=== PATIENT | female | born 1985 | race African-American/Black ===

== ENCOUNTER 2016-04-02 12:27 | Emergency (ER) | payer OTHER ==
[2016-04-02] MEDS ORDERED: METOCLOPRAMIDE INJ 10MG/2ML VIAL (J2765) As Ordered ONE (13:24)
[2016-04-02 14:37] LABS: BASO % 0.2 % (0.0-1.0); EOS # 0.1 K/mm3 (0.0-0.50); EOS % 1.6 % (0.0-3.0); LARGE UNSTAINED CELL % 0.7 % (0.0-4.0); LYMPH # 1.3 K/mm3 (1.5-4.5); LYMPH % 20.4 % (24.0-44.0); MEAN CORPUSCULAR HGB CONC 32.4 g/dl (32.0-36.5); MEAN CORPUSCULAR VOLUME 89.5 fl (80.0-96.0); MONO # 0.2 K/mm3 (0.0-0.8); MONO % 2.6 % (0.0-5.0); NEUTROPHILS # 4.6 K/mm3 (1.8-7.7); NEUTROPHILS % 74.6 % (36.0-66.0); PLATELET COUNT, AUTOMATED 292 k/mm3 (150-450); RED CELL DISTRIBUTION WIDTH 12.9 % (11.5-14.5); WHITE BLOOD COUNT 6.1 K/mm3 (4.0-10.0)
[2016-04-02] MEDS ORDERED: ONDANSETRON 4MG/2ML VIAL (J2405) As Ordered ONE (14:50)
[2016-04-02 15:02] LABS: ANION GAP 9 MEQ/L (8-16); BLOOD UREA NITROGEN 5 MG/DL (7-18); CALCIUM LEVEL 8.9 MG/DL (8.5-10.1); CARBON DIOXIDE LEVEL 23 MEQ/L (21-32); CHLORIDE LEVEL 107 MEQ/L (98-107); CREATININE FOR GFR 0.54 MG/DL (0.55-1.02); GLOMERULAR FILTRATION RATE > 60.0 (>60); GLUCOSE, FASTING 85 MG/DL (70-105); POTASSIUM SERUM 3.7 MEQ/L (3.5-5.1); SODIUM LEVEL 139 MEQ/L (136-145)
--- NOTE | 2016-04-02 16:40 | EDDOCDS ---
Physician Documentation [facility] Name: Angie Little Age: 31 yrs Sex: Female : 1985 Arrival Date: 04/02/2016 Time: 12:27 Bed I3 / M3 Private MD: Disposition: 04/02/16 16:23 Discharged to Home/Self Care. Impression: Nausea and vomiting. - Condition is Stable. - Discharge Instructions: Nausea and Vomiting. - Prescriptions for ZOFRAN ODT 4 mg - dissolve 1 tablet by ORAL route 4 times per day As needed do not chew, do not swallow whole; 10 tablet. - Medication Reconciliation, Local Pharmacy Hours form. - Follow up: Kaelyn Vasquez MD; When: 2 - 3 days; Reason: Recheck today's complaints, Continuance of care. Follow up: Emergency Department; When: As needed; Reason: Worsening of conditions. - Problem is new. - Symptoms have improved. Historical: - Allergies: no known allergies; - Home Meds: 1. 1 mg Oral tab 1 tablet daily - PMHx: none; - PSHx: none; - Social history: Smoking status: Patient states was never smoker of tobacco. No barriers to communication noted, The patient speaks fluent Macedonian. - Family history: Not pertinent. - : The pt / caregiver states he / she is not on anticoagulants. Home medication list is obtained from the patient. - Exposure Risk Screening:: None identified. [employer]: 04/02 12:33 1, Full Term 0, Premature 0, 0, Living 0, LMP 12/27/2015 ms18 Vital Signs: 12:29 BP 113 / 59; Pulse 87; Resp 18; Temp 97.0(O); Pulse Ox 100% on R/A; Weight 84.82 kg / ct3 187 lbs (M); Height 5 ft. 5 in. (165.10 cm) (M); Pain 0/10; 15:41 BP 111 / 65; Pulse 84; Resp 18; Pulse Ox 99% on R/A; Pain 0/10; kc3 12:29 Body Mass Index 31.12 (84.82 kg, 165.10 cm) ct3 MDM: 12:52 Financial registration complete. lg 12:54 IV Saline Lock ordered. ar2 12:54 Metoclopramide 10 mg IV at 40 mg/hr once over 15 mins ordered. ar2 12:54 Fluid Challenge ordered. ar2 12:55 NS 0.9% 1000 ml IV at bolus once ordered. ar2 12:55 Misc Veneer Trimmer Order ordered. ar2 12:56 CBC with Diff Ordered. EDMS 12:56 MED Profile Ordered. EDMS 12:56 UA Ordered. EDMS 13:10 Misc Veneer Trimmer Order complete. dem1 13:20 [facility] Payment Agreement was scanned into [employer] and attached to record. lg 13:55 UA Reviewed. ar2 14:47 Ondansetron 4 mg IVP once ordered. ar2 14:48 Heart Tones ordered. ar2 15:02 CBC with Diff Reviewed. ar2 15:03 Urine Culture Ordered. EDMS 15:41 MED Profile Reviewed. dk1 Administered Medications: 13:48 Drug: Metoclopramide 10 mg [metoclopramide 5 mg/mL injection solution] Route: IV; Rate: kc3 40 mg/hr; Infused Over: 15 mins; Site: left hand; 14:15 Follow up: IV Status: Completed infusion srm 13:48 Drug: NS 0.9% 1000 ml [sodium chloride 0.9 % intravenous solution] Route: IV; Rate: kc3 bolus; Site: left hand; 16:10 Follow up: IV Status: Completed infusion srm 15:11 Drug: Ondansetron 4 mg [ondansetron HCl 2 mg/mL intravenous solution (2 mL)] Route: kc3 IVP; Site: left hand; Signatures: Dispatcher [employer] EDMS Gopi Kelly Reg Reg lg Dieter Costa PA-C PA-C dk1 Boris Rutledge PA-C PAJillian ar2 Rosaura Magana dem1 Latesha Franz RN RN ms18 Neisha Ty RN RN kc3 Fifi Valentin RN srm The chart was reviewed and I authenticate all verbal orders and agree with the evaluation and treatment provided.Corrections: (The following items were deleted from the chart) 12:55 12:54 Misc Veneer Trimmer Order ordered. ar2 ar2 Attachments: 13:20 [facility] [place] Payment Agreement lg MTDD
--- NOTE | 2016-04-02 16:40 | EDDOCDS ---
Nurse's Notes [facility] Name: Angie Little Age: 31 yrs Sex: Female : 1985 Arrival Date: 04/02/2016 Time: 12:27 Bed I3 / M3 Private MD: Diagnosis: Nausea and vomiting Presentation: 04/02 12:30 Presenting complaint: Patient states: that she is 12 weeks and can't keep ms18 anything down. Pt states that she hasn't been able to eat in 2 weeks. Adult Sepsis Screening: The patient does not have new or worsening altered mentation. Patient's respiratory rate is less than 22. Systolic blood pressure is greater than 100. Patient has a qSOFA score of 0- Negative Sepsis Screen. Suicide/Homicide risk assessment- the patient denies having any suicidal and/or homicidal ideations and does not present with any other emotional, behavioral or mental health complaints. Status: The patient is a dependent. Transition of care: patient was not received from another setting of care. 12:30 Acuity: DIVINE Level 3 ms18 12:30 Method Of Arrival: Walkin/Carried/Asstd ms18 Triage Assessment: 12:33 General: Appears in no apparent distress, comfortable, Behavior is appropriate for age, ms18 cooperative. Pain: Location: epigastric area, right upper quadrant and left upper quadrant Pain currently is 6 out of 10 on a pain scale. Pt Declines HIV testing. Neurological: Level of Consciousness is awake, alert, obeys commands, Oriented to person, place, time. Respiratory: No deficits noted. GI: Abdomen is non- distended Reports nausea, vomiting. Derm: Skin is normal. 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 1 mg Oral tab 1 tablet daily - PMHx: none; - PSHx: none; - Social history: Smoking status: Patient states was never smoker of tobacco. No barriers to communication noted, The patient speaks fluent Czech. - Family history: Not pertinent. - : The pt / caregiver states he / she is not on anticoagulants. Home medication list is obtained from the patient. - Exposure Risk Screening:: None identified. Screenin:38 Screening information is obtained from the patient. Fall risk: No risks identified. kc3 Assistance ADL's: requires no assistance with activities of daily living. Abuse/DV Screen: The patient / caregiver reports he/she is: not in a situation that causes fear, pain or injury. Nutritional screening: No deficits noted. Advance Directives: Currently, there is no health care proxy. home support is adequate. Assessment: 13:49 General: Appears in no apparent distress, comfortable, Behavior is appropriate for age, kc3 cooperative. Pain: Location: abdomen. Neurological: Level of Consciousness is awake, alert, obeys commands, Oriented to person, place, time. Respiratory: Respiratory effort is even, unlabored, Respiratory pattern is regular, symmetrical. GI: Abdomen is flat, Bowel sounds present X 4 quads. Abd is soft and non tender Reports nausea. Derm: Skin is normal. 14:30 General: Appears in no apparent distress, comfortable, Behavior is appropriate for age, kc3 cooperative. Pain: Location: epigastric area. Neurological: Level of Consciousness is awake, alert, obeys commands, Oriented to person, place, time. Respiratory: Respiratory effort is even, unlabored. Derm: Skin is normal. 15:37 General: Appears in no apparent distress, comfortable, Behavior is appropriate for age, kc3 cooperative, Pt resting on stretcher with no complaints at this time. Pt sipping on mynor estiven. Will continue to monitor. . Respiratory: No deficits noted. Derm: No deficits noted. 16:37 General: Appears in no apparent distress, comfortable, Behavior is appropriate for age, kc3 cooperative. Pain: Denies pain. Neurological: Level of Consciousness is awake, alert, obeys commands, Oriented to person, place, time. Respiratory: Respiratory effort is even, unlabored. Derm: Skin is normal. Vital Signs: 12:29 BP 113 / 59; Pulse 87; Resp 18; Temp 97.0(O); Pulse Ox 100% on R/A; Weight 84.82 kg ct3 (M); Height 5 ft. 5 in. (165.10 cm) (M); Pain 0/10; 15:41 BP 111 / 65; Pulse 84; Resp 18; Pulse Ox 99% on R/A; Pain 0/10; kc3 12:29 Body Mass Index 31.12 (84.82 kg, 165.10 cm) ct3 Vitals: 12:29 Log In Time: April 02, 2016 at 12:27. ct3 15:08 Heart Tones 152BPM. ms18 ED Course: 12:29 Patient visited by Autumn Barcenas PCA. ct3 12:29 Patient moved to Waiting ct3 12:31 Patient moved to Pre RCE ct3 12:33 Triage Initiated ms18 12:35 Patient moved to Triage 3 ms18 12:47 Boris Rutledge PA-C is PHCP. ar2 12:47 Juan Alberto Gordon MD is Attending Physician. ar2 12:47 Patient visited by Boris Rutledge PA-C. ar2 13:00 Patient moved to I3 / M3 jb5 13:03 UA Sent. jb5 13:18 Patient name changed from Angie\S\\S\Anabel\S\ to Angie\S\Wamuyu\S\Anabel. EDMS 13:20 [facility] Payment Agreement was scanned into [employer] and attached to record. lg 13:23 Patient visited by Neisha Ty RN. kc3 13:32 Patient name changed from Angie\S\Wamuyu\S\Anabel\S\ to Angie\S\ \S\Anabel. EDMS 13:49 Inserted saline lock: 20 gauge in left hand The patient tolerated the procedure well. kc3 14:26 Patient visited by Neisha Ty RN. kc3 15:07 Patient visited by Latesha Franz RN. ms18 15:11 Urine Culture Sent. kc3 15:22 PHCP role handed off by Boris Rutledge PA-C dk1 15:22 Dieter Costa PA-C is PHCP. dk1 15:36 Patient visited by Neisha Ty RN. kc3 15:38 The patient / caregiver is instructed regarding the plan of care and ED course. kc3 16:23 Kaelyn Vasquez MD is Referral Physician. dk1 16:37 Discontinued IV lock intact, bleeding controlled, pressure dressing applied, No kc3 redness/swelling at site. No procedures done that require assistance. Administered Medications: 13:48 Drug: Metoclopramide 10 mg [metoclopramide 5 mg/mL injection solution] Route: IV; Rate: kc3 40 mg/hr; Infused Over: 15 mins; Site: left hand; 14:15 Follow up: IV Status: Completed infusion srm 13:48 Drug: NS 0.9% 1000 ml [sodium chloride 0.9 % intravenous solution] Route: IV; Rate: kc3 bolus; Site: left hand; 16:10 Follow up: IV Status: Completed infusion srm 15:11 Drug: Ondansetron 4 mg [ondansetron HCl 2 mg/mL intravenous solution (2 mL)] Route: kc3 IVP; Site: left hand; Order Results: Lab Order: CBC with Diff; SPEC'M 04/02/16 14:28 Test: WHITE BLOOD COUNT; Value: 6.1; Range: 4.0-10.0; Units: K/mm3; Status: F Test: RED BLOOD COUNT; Value: 4.41; Range: 4.00-5.40; Units: M/mm3; Status: F Test: HEMOGLOBIN; Value: 12.8; Range: 12.0-16.0; Units: g/dl; Status: F Test: HEMATOCRIT; Value: 39.5; Range: 36.0-47.0; Units: %; Status: F Test: MEAN CORPUSCULAR VOLUME; Value: 89.5; Range: 80.0-96.0; Units: fl; Status: F Test: MEAN CORPUSCULAR HEMOGLOBIN; Value: 29.0; Range: 27.0-33.0; Units: pg; Status: F Test: MEAN CORPUSCULAR HGB CONC; Value: 32.4; Range: 32.0-36.5; Units: g/dl; Status: F Test: RED CELL DISTRIBUTION WIDTH; Value: 12.9; Range: 11.5-14.5; Units: %; Status: F Test: PLATELET COUNT, AUTOMATED; Value: 292; Range: 150-450; Units: k/mm3; Status: F Test: NEUTROPHILS %; Value: 74.6; Range: 36.0-66.0; Abnormal: Above high normal; Units: %; Status: F Test: LYMPH %; Value: 20.4; Range: 24.0-44.0; Abnormal: Below low normal; Units: %; Status: F Test: MONO %; Value: 2.6; Range: 0.0-5.0; Units: %; Status: F Test: EOS %; Value: 1.6; Range: 0.0-3.0; Units: %; Status: F Test: BASO %; Value: 0.2; Range: 0.0-1.0; Units: %; Status: F Test: LARGE UNSTAINED CELL %; Value: 0.7; Range: 0.0-4.0; Units: %; Status: F Test: NEUTROPHILS #; Value: 4.6; Range: 1.8-7.7; Units: K/mm3; Status: F Test: LYMPH #; Value: 1.3; Range: 1.5-4.5; Abnormal: Below low normal; Units: K/mm3; Status: F Test: MONO #; Value: 0.2; Range: 0.0-0.8; Units: K/mm3; Status: F Test: EOS #; Value: 0.1; Range: 0.0-0.50; Units: K/mm3; Status: F Test: BASO #; Value: 0.0; Range: 0.0-0.2; Units: K/mm3; Status: F Test: LARGE UNSTAINED CELL #; Value: 0.0; Range: 0.0-0.4; Units: K/mm3; Status: F Lab Order: [facility]; [facility] 04/02/16 14:28 Test: GLUCOSE, FASTING; Value: 85; Range: 70-105; Units: MG/DL; Status: F Test: BLOOD UREA NITROGEN; Value: 5; Range: 7-18; Abnormal: Below low normal; Units: MG/DL; Status: F Test: CREATININE FOR GFR; Value: 0.54; Range: 0.55-1.02; Abnormal: Below low normal; Units: MG/DL; Status: F Test: GLOMERULAR FILTRATION RATE; Value: > 60.0; Range: >60; Status: F Test: SODIUM LEVEL; Value: 139; Range: 136-145; Units: MEQ/L; Status: F Test: POTASSIUM SERUM; Value: 3.7; Range: 3.5-5.1; Units: MEQ/L; Status: F Test: CHLORIDE LEVEL; Value: 107; Range: 98-107; Units: MEQ/L; Status: F Test: CARBON DIOXIDE LEVEL; Value: 23; Range: 21-32; Units: MEQ/L; Status: F Test: ANION GAP; Value: 9; Range: 8-16; Units: MEQ/L; Status: F Test: CALCIUM LEVEL; Value: 8.9; Range: 8.5-10.1; Units: MG/DL; Status: F Test Note: ; Units are mL/min/1.73 m2 Chronic Kidney Disease Staging per NKF: Stage I & II GFR >=60 Normal to Mildly Decreased Stage III GFR 30-59 Moderately Decreased Stage IV GFR 15-29 Severely Decreased Stage V GFR <15 Very Little GFR Left ESRD GFR <15 on PRINTED CIRCUIT BOARDS PLASMA ETCHER Lab Order: UA; SPEC'M 04/02/16 13:02 Test: APPEARANCE, URINE; Value: CLOUDY; Range: CLEAR; Abnormal: Above high normal; Status: F Test: COLOR, URINE; Value: YELLOW; Range: YELLOW; Status: F Test: PH,URINE; Value: 5.0; Range: 5.0-9.0; Units: UNITS; Status: F Test: SPECIFIC GRAVITY URINE AUTO; Value: 1.030; Range: 1.002-1.035; Status: F Test: PROTEIN, URINE AUTO; Value: 1+; Range: NEGATIVE; Abnormal: Above high normal; Units: mg/dL; Status: F Test: GLUCOSE, URINE (UA) AUTO; Value: NEGATIVE; Range: NEGATIVE; Units: mg/dL; Status: F Test: KETONE, URINE AUTO; Value: NEGATIVE; Range: NEGATIVE; Units: mg/dL; Status: F Test: UROBILINOGEN, URINE AUTO; Value: 0.2; Range: 0.0-2.0; Units: mg/dL; Status: F Test: BILIRUBIN, URINE AUTO; Value: NEGATIVE; Range: NEGATIVE; Status: F Test: NITRITE, URINE AUTO; Value: NEGATIVE; Range: NEGATIVE; Status: F Test: LEUKOCYTE ESTERASE, URINE AUTO; Value: NEGATIVE; Range: NEGATIVE; Status: F Test: BLOOD, URINE BLOOD; Value: NEGATIVE; Range: NEGATIVE; Status: F Test: WBC, URINE AUTO; Value: 1; Range: 0-3; Units: /HPF; Status: F Test: RBC, URINE AUTO; Value: 3; Range: 0-3; Units: /HPF; Status: F Test: BACTERIA, URINE AUTO; Value: 1+; Range: NEGATIVE; Abnormal: Above high normal; Status: F Test: SQUAMOUS EPITHELIAL CELL UR AU; Value: 15; Range: 0-6; Units: /HPF; Status: F Test: MUCUS, URINE; Value: SMALL; Range: NEGATIVE; Status: F Test: HYALINE CAST, URINE AUTO; Value: 0; Range: 0-1; Units: /LPF; Status: F Outcome: 16:23 Discharge ordered by Provider. dk1 16:38 Discharge Assessment: Patient awake, alert and oriented x 3. No cognitive and/or kc3 functional deficits noted. Patient verbalized understanding of disposition instructions. patient administered narcotics - no. The following High Risk Discharge criteria are identified: None. Discharged to home ambulatory. Condition: stable. Discharge instructions given to patient, Instructed on discharge instructions, follow up and referral plans. medication usage, Demonstrated understanding of instructions, medications, Pt was receptive of discharge instructions/ teaching. Prescriptions given X 1. No special radiology studies were completed. Property :Personal belongings accompany Pt. 16:39 Patient left the ED. kc3 Signatures: Dispatcher [employer] EDMS Fifi Valentin, RN RN Gopi Do, Reg Reg lg Madison Kay, REAL ESTATE AGENCY LICENSEE REAL ESTATE AGENCY LICENSEE jb5 Dieter Costa PAIreneC PAIreneC dk1 Boris Rutledge PA-Wen PA-C ar2 Autumn Barcenas, REAL ESTATE AGENCY LICENSEE REAL ESTATE AGENCY LICENSEE ct3 Latesha Franz RN RN ms18 Neisha Ty RN RN kc3 MTDD
--- NOTE | 2016-04-04 17:40 | EDDOCDS ---
Physician Documentation [facility] Name: Angie Little Age: 31 yrs Sex: Female : 1985 Arrival Date: 04/02/2016 Time: 12:27 Bed I3 / M3 Private MD: Disposition: 04/02/16 16:23 Discharged to Home/Self Care. Impression: Nausea and vomiting. - Condition is Stable. - Discharge Instructions: Nausea and Vomiting. - Prescriptions for ZOFRAN ODT 4 mg - dissolve 1 tablet by ORAL route 4 times per day As needed do not chew, do not swallow whole; 10 tablet. - Medication Reconciliation, Local Pharmacy Hours form. - Follow up: Kaelyn Vasquez MD; When: 2 - 3 days; Reason: Recheck today's complaints, Continuance of care. Follow up: Emergency Department; When: As needed; Reason: Worsening of conditions. - Problem is new. - Symptoms have improved. Historical: - Allergies: no known allergies; - Home Meds: 1. 1 mg Oral tab 1 tablet daily - PMHx: none; - PSHx: none; - Social history: Smoking status: Patient states was never smoker of tobacco. No barriers to communication noted, The patient speaks fluent Setswana. - Family history: Not pertinent. - : The pt / caregiver states he / she is not on anticoagulants. Home medication list is obtained from the patient. - Exposure Risk Screening:: None identified. 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 5 in. (165.10 cm) (M); Pain 0/10; 15:41 BP 111 / 65; Pulse 84; Resp 18; Pulse Ox 99% on R/A; Pain 0/10; kc3 12:29 Body Mass Index 31.12 (84.82 kg, 165.10 cm) ct3 MDM: 12:52 Financial registration complete. lg 12:54 IV Saline Lock ordered. ar2 12:54 Metoclopramide 10 mg IV at 40 mg/hr once over 15 mins ordered. ar2 12:54 Fluid Challenge ordered. ar2 12:55 NS 0.9% 1000 ml IV at bolus once ordered. ar2 12:55 Misc Meter Shop Supervisor Order ordered. ar2 12:56 CBC with Diff Ordered. EDMS 12:56 MED Profile Ordered. EDMS 12:56 UA Ordered. EDMS 13:10 Misc Meter Shop Supervisor Order complete. dem1 13:20 [facility] Payment Agreement was scanned into [employer] and attached to record. lg 13:55 UA Reviewed. ar2 14:47 Ondansetron 4 mg IVP once ordered. ar2 14:48 Heart Tones ordered. ar2 15:02 CBC with Diff Reviewed. ar2 15:03 Urine Culture Ordered. EDMS 15:41 MED Profile Reviewed. dk1 17:24 T-Sheet-- Draft Copy was scanned into [employer] and attached to record. klr Administered Medications: 13:48 Drug: Metoclopramide 10 mg [metoclopramide 5 mg/mL injection solution] Route: IV; Rate: kc3 40 mg/hr; Infused Over: 15 mins; Site: left hand; 14:15 Follow up: IV Status: Completed infusion srm 13:48 Drug: NS 0.9% 1000 ml [sodium chloride 0.9 % intravenous solution] Route: IV; Rate: kc3 bolus; Site: left hand; 16:10 Follow up: IV Status: Completed infusion srm 15:11 Drug: Ondansetron 4 mg [ondansetron HCl 2 mg/mL intravenous solution (2 mL)] Route: kc3 IVP; Site: left hand; Signatures: Dispatcher [employer] EDMS Gopi Kelly, Dieter Adamson lg, PA-C PAJillian dykes1 Boris Rutledge PA-C PAJillian ar2 Rosaura Magana dem1 Latesha Franz RN RN ms18 Neisha Ty RN RN kc3 Mirna Gamez Staci RN srm The chart was reviewed and I authenticate all verbal orders and agree with the evaluation and treatment provided.Corrections: (The following items were deleted from the chart) 12:55 12:54 Misc Meter Shop Supervisor Order ordered. ar2 ar2 Attachments: 13:20 [facility] Payment Agreement lg 17:24 T-Sheet-- Draft Copy klr Chart Complete MTDD
--- NOTE | 2016-04-04 17:40 | EDDOCDS ---
Nurse's Notes [facility] Name: Angie Little Age: 31 yrs Sex: Female : 1985 Arrival Date: 04/02/2016 Time: 12:27 Bed I3 / M3 Private MD: Diagnosis: Nausea and vomiting Presentation: 04/02 12:30 Presenting complaint: Patient states: that she is 12 weeks and can't keep ms18 anything down. Pt states that she hasn't been able to eat in 2 weeks. Adult Sepsis Screening: The patient does not have new or worsening altered mentation. Patient's respiratory rate is less than 22. Systolic blood pressure is greater than 100. Patient has a qSOFA score of 0- Negative Sepsis Screen. Suicide/Homicide risk assessment- the patient denies having any suicidal and/or homicidal ideations and does not present with any other emotional, behavioral or mental health complaints. Status: The patient is a dependent. Transition of care: patient was not received from another setting of care. 12:30 Acuity: DIVINE Level 3 ms18 12:30 Method Of Arrival: Walkin/Carried/Asstd ms18 Triage Assessment: 12:33 General: Appears in no apparent distress, comfortable, Behavior is appropriate for age, ms18 cooperative. Pain: Location: epigastric area, right upper quadrant and left upper quadrant Pain currently is 6 out of 10 on a pain scale. Pt Declines HIV testing. Neurological: Level of Consciousness is awake, alert, obeys commands, Oriented to person, place, time. Respiratory: No deficits noted. GI: Abdomen is non- distended Reports nausea, vomiting. Derm: Skin is normal. VIDEOTAPE EDITOR: 12:33 1, Full Term 0, Premature 0, 0, Living 0, LMP 12/27/2015 ms18 Historical: - Allergies: no known allergies; - Home Meds: 1. 1 mg Oral tab 1 tablet daily - PMHx: none; - PSHx: none; - Social history: Smoking status: Patient states was never smoker of tobacco. No barriers to communication noted, The patient speaks fluent Ukrainian. - Family history: Not pertinent. - : The pt / caregiver states he / she is not on anticoagulants. Home medication list is obtained from the patient. - Exposure Risk Screening:: None identified. Screenin:38 Screening information is obtained from the patient. Fall risk: No risks identified. kc3 Assistance ADL's: requires no assistance with activities of daily living. Abuse/DV Screen: The patient / caregiver reports he/she is: not in a situation that causes fear, pain or injury. Nutritional screening: No deficits noted. Advance Directives: Currently, there is no health care proxy. home support is adequate. Assessment: 13:49 General: Appears in no apparent distress, comfortable, Behavior is appropriate for age, kc3 cooperative. Pain: Location: abdomen. Neurological: Level of Consciousness is awake, alert, obeys commands, Oriented to person, place, time. Respiratory: Respiratory effort is even, unlabored, Respiratory pattern is regular, symmetrical. GI: Abdomen is flat, Bowel sounds present X 4 quads. Abd is soft and non tender Reports nausea. Derm: Skin is normal. 14:30 General: Appears in no apparent distress, comfortable, Behavior is appropriate for age, kc3 cooperative. Pain: Location: epigastric area. Neurological: Level of Consciousness is awake, alert, obeys commands, Oriented to person, place, time. Respiratory: Respiratory effort is even, unlabored. Derm: Skin is normal. 15:37 General: Appears in no apparent distress, comfortable, Behavior is appropriate for age, kc3 cooperative, Pt resting on stretcher with no complaints at this time. Pt sipping on mynor estiven. Will continue to monitor. . Respiratory: No deficits noted. Derm: No deficits noted. 16:37 General: Appears in no apparent distress, comfortable, Behavior is appropriate for age, kc3 cooperative. Pain: Denies pain. Neurological: Level of Consciousness is awake, alert, obeys commands, Oriented to person, place, time. Respiratory: Respiratory effort is even, unlabored. Derm: Skin is normal. Vital Signs: 12:29 BP 113 / 59; Pulse 87; Resp 18; Temp 97.0(O); Pulse Ox 100% on R/A; Weight 84.82 kg ct3 (M); Height 5 ft. 5 in. (165.10 cm) (M); Pain 0/10; 15:41 BP 111 / 65; Pulse 84; Resp 18; Pulse Ox 99% on R/A; Pain 0/10; kc3 12:29 Body Mass Index 31.12 (84.82 kg, 165.10 cm) ct3 Vitals: 12:29 Log In Time: April 02, 2016 at 12:27. ct3 15:08 Heart Tones 152BPM. ms18 ED Course: 12:29 Patient visited by Autumn Barcenas PCA. ct3 12:29 Patient moved to Waiting ct3 12:31 Patient moved to Pre RCE ct3 12:33 Triage Initiated ms18 12:35 Patient moved to Triage 3 ms18 12:47 Boris Rutledge PA-C is PHCP. ar2 12:47 Juan Alberto Gordon MD is Attending Physician. ar2 12:47 Patient visited by Boris Rutledge PA-C. ar2 13:00 Patient moved to I3 / M3 jb5 13:03 UA Sent. jb5 13:18 Patient name changed from Angie\S\\S\Anabel\S\ to Angie\S\Wamuyu\S\Anabel. EDMS 13:20 [facility] Payment Agreement was scanned into [employer] and attached to record. lg 13:23 Patient visited by Neisha Ty RN. kc3 13:32 Patient name changed from Angie\S\Wamuyu\S\Anabel\S\ to Angie\S\ \S\Anabel. EDMS 13:49 Inserted saline lock: 20 gauge in left hand The patient tolerated the procedure well. kc3 14:26 Patient visited by Neisha Ty RN. kc3 15:07 Patient visited by Latesha Franz RN. ms18 15:11 Urine Culture Sent. kc3 15:22 PHCP role handed off by Boris Rutledge PA-C dk1 15:22 Dieter Cotsa PA-C is PHCP. dk1 15:36 Patient visited by Neisha Ty RN. kc3 15:38 The patient / caregiver is instructed regarding the plan of care and ED course. kc3 16:23 Kaelyn Vasquez MD is Referral Physician. dk1 16:37 Discontinued IV lock intact, bleeding controlled, pressure dressing applied, No kc3 redness/swelling at site. No procedures done that require assistance. 17:24 T-Sheet-- Draft Copy was scanned into [employer] and attached to record. klr Administered Medications: 13:48 Drug: Metoclopramide 10 mg [metoclopramide 5 mg/mL injection solution] Route: IV; Rate: kc3 40 mg/hr; Infused Over: 15 mins; Site: left hand; 14:15 Follow up: IV Status: Completed infusion srm 13:48 Drug: NS 0.9% 1000 ml [sodium chloride 0.9 % intravenous solution] Route: IV; Rate: kc3 bolus; Site: left hand; 16:10 Follow up: IV Status: Completed infusion srm 15:11 Drug: Ondansetron 4 mg [ondansetron HCl 2 mg/mL intravenous solution (2 mL)] Route: kc3 IVP; Site: left hand; Order Results: Lab Order: CBC with Diff; SPEC'M 04/02/16 14:28 Test: WHITE BLOOD COUNT; Value: 6.1; Range: 4.0-10.0; Units: K/mm3; Status: F Test: RED BLOOD COUNT; Value: 4.41; Range: 4.00-5.40; Units: M/mm3; Status: F Test: HEMOGLOBIN; Value: 12.8; Range: 12.0-16.0; Units: g/dl; Status: F Test: HEMATOCRIT; Value: 39.5; Range: 36.0-47.0; Units: %; Status: F Test: MEAN CORPUSCULAR VOLUME; Value: 89.5; Range: 80.0-96.0; Units: fl; Status: F Test: MEAN CORPUSCULAR HEMOGLOBIN; Value: 29.0; Range: 27.0-33.0; Units: pg; Status: F Test: MEAN CORPUSCULAR HGB CONC; Value: 32.4; Range: 32.0-36.5; Units: g/dl; Status: F Test: RED CELL DISTRIBUTION WIDTH; Value: 12.9; Range: 11.5-14.5; Units: %; Status: F Test: PLATELET COUNT, AUTOMATED; Value: 292; Range: 150-450; Units: k/mm3; Status: F Test: NEUTROPHILS %; Value: 74.6; Range: 36.0-66.0; Abnormal: Above high normal; Units: %; Status: F Test: LYMPH %; Value: 20.4; Range: 24.0-44.0; Abnormal: Below low normal; Units: %; Status: F Test: MONO %; Value: 2.6; Range: 0.0-5.0; Units: %; Status: F Test: EOS %; Value: 1.6; Range: 0.0-3.0; Units: %; Status: F Test: BASO %; Value: 0.2; Range: 0.0-1.0; Units: %; Status: F Test: LARGE UNSTAINED CELL %; Value: 0.7; Range: 0.0-4.0; Units: %; Status: F Test: NEUTROPHILS #; Value: 4.6; Range: 1.8-7.7; Units: K/mm3; Status: F Test: LYMPH #; Value: 1.3; Range: 1.5-4.5; Abnormal: Below low normal; Units: K/mm3; Status: F Test: MONO #; Value: 0.2; Range: 0.0-0.8; Units: K/mm3; Status: F Test: EOS #; Value: 0.1; Range: 0.0-0.50; Units: K/mm3; Status: F Test: BASO #; Value: 0.0; Range: 0.0-0.2; Units: K/mm3; Status: F Test: LARGE UNSTAINED CELL #; Value: 0.0; Range: 0.0-0.4; Units: K/mm3; Status: F Lab Order: MED Profile; [facility] 04/02/16 14:28 Test: GLUCOSE, FASTING; Value: 85; Range: 70-105; Units: MG/DL; Status: F Test: BLOOD UREA NITROGEN; Value: 5; Range: 7-18; Abnormal: Below low normal; Units: MG/DL; Status: F Test: CREATININE FOR GFR; Value: 0.54; Range: 0.55-1.02; Abnormal: Below low normal; Units: MG/DL; Status: F Test: GLOMERULAR FILTRATION RATE; Value: > 60.0; Range: >60; Status: F Test: SODIUM LEVEL; Value: 139; Range: 136-145; Units: MEQ/L; Status: F Test: POTASSIUM SERUM; Value: 3.7; Range: 3.5-5.1; Units: MEQ/L; Status: F Test: CHLORIDE LEVEL; Value: 107; Range: 98-107; Units: MEQ/L; Status: F Test: CARBON DIOXIDE LEVEL; Value: 23; Range: 21-32; Units: MEQ/L; Status: F Test: ANION GAP; Value: 9; Range: 8-16; Units: MEQ/L; Status: F Test: CALCIUM LEVEL; Value: 8.9; Range: 8.5-10.1; Units: MG/DL; Status: F Test Note: ; Units are mL/min/1.73 m2 Chronic Kidney Disease Staging per NKF: Stage I & II GFR >=60 Normal to Mildly Decreased Stage III GFR 30-59 Moderately Decreased Stage IV GFR 15-29 Severely Decreased Stage V GFR <15 Very Little GFR Left ESRD GFR <15 on LABORATORY APPARATUS GLASS BLOWER Lab Order: UA; SPEC'M 04/02/16 13:02 Test: APPEARANCE, URINE; Value: CLOUDY; Range: CLEAR; Abnormal: Above high normal; Status: F Test: COLOR, URINE; Value: YELLOW; Range: YELLOW; Status: F Test: PH,URINE; Value: 5.0; Range: 5.0-9.0; Units: UNITS; Status: F Test: SPECIFIC GRAVITY URINE AUTO; Value: 1.030; Range: 1.002-1.035; Status: F Test: PROTEIN, URINE AUTO; Value: 1+; Range: NEGATIVE; Abnormal: Above high normal; Units: mg/dL; Status: F Test: GLUCOSE, URINE (UA) AUTO; Value: NEGATIVE; Range: NEGATIVE; Units: mg/dL; Status: F Test: KETONE, URINE AUTO; Value: NEGATIVE; Range: NEGATIVE; Units: mg/dL; Status: F Test: UROBILINOGEN, URINE AUTO; Value: 0.2; Range: 0.0-2.0; Units: mg/dL; Status: F Test: BILIRUBIN, URINE AUTO; Value: NEGATIVE; Range: NEGATIVE; Status: F Test: NITRITE, URINE AUTO; Value: NEGATIVE; Range: NEGATIVE; Status: F Test: LEUKOCYTE ESTERASE, URINE AUTO; Value: NEGATIVE; Range: NEGATIVE; Status: F Test: BLOOD, URINE BLOOD; Value: NEGATIVE; Range: NEGATIVE; Status: F Test: WBC, URINE AUTO; Value: 1; Range: 0-3; Units: /HPF; Status: F Test: RBC, URINE AUTO; Value: 3; Range: 0-3; Units: /HPF; Status: F Test: BACTERIA, URINE AUTO; Value: 1+; Range: NEGATIVE; Abnormal: Above high normal; Status: F Test: SQUAMOUS EPITHELIAL CELL UR AU; Value: 15; Range: 0-6; Units: /HPF; Status: F Test: MUCUS, URINE; Value: SMALL; Range: NEGATIVE; Status: F Test: HYALINE CAST, URINE AUTO; Value: 0; Range: 0-1; Units: /LPF; Status: F Lab Order: Urine Culture; SPEC'M 04/02/16 13:02 Test: URINE CULTURE; Value: <EXTERNAL COMMENT eCWMed> FULL REPORT IN LAB NOTES (eCW and Medent).; Status: F Test: URINE CULTURE; Value: URINE CULTURE RESULT NO GROWTH CLINICAL SIGNIFICANCE 1 ORGANISM; Status: F Outcome: 16:23 Discharge ordered by Provider. dk1 16:38 Discharge Assessment: Patient awake, alert and oriented x 3. No cognitive and/or kc3 functional deficits noted. Patient verbalized understanding of disposition instructions. patient administered narcotics - no. The following High Risk Discharge criteria are identified: None. Discharged to home ambulatory. Condition: stable. Discharge instructions given to patient, Instructed on discharge instructions, follow up and referral plans. medication usage, Demonstrated understanding of instructions, medications, Pt was receptive of discharge instructions/ teaching. Prescriptions given X 1. No special radiology studies were completed. Property :Personal belongings accompany Pt. 16:39 Patient left the ED. kc3 Signatures: Dispatcher [employer] EDMS Fifi Valentin RN RN [facility] Gopi Kelly, Jeremy Reg lg Madison Kay, DERRICK CAR OPERATOR DERRICK CAR OPERATOR jb5 Dieter Costa PA-C PAIreneC dk1 Boris Rutledge PA-C PA-Wen ar2 Autumn Barcenas, DERRICK CAR OPERATOR DERRICK CAR OPERATOR ct3 Latesha Franz RN RN ms18 Neisha Ty RN RN kc3 Mirna Gamez Chart Complete MTDD
--- NOTE | 2016-04-04 17:40 | EDDOCDS ---
Physician Documentation [facility] Name: Angie Little Age: 31 yrs Sex: Female : 1985 Arrival Date: 04/02/2016 Time: 12:27 Bed I3 / M3 Private MD: Disposition: 04/02/16 16:23 Discharged to Home/Self Care. Impression: Nausea and vomiting. - Condition is Stable. - Discharge Instructions: Nausea and Vomiting. - Prescriptions for ZOFRAN ODT 4 mg - dissolve 1 tablet by ORAL route 4 times per day As needed do not chew, do not swallow whole; 10 tablet. - Medication Reconciliation, Local Pharmacy Hours form. - Follow up: Kaelyn Vasquez MD; When: 2 - 3 days; Reason: Recheck today's complaints, Continuance of care. Follow up: Emergency Department; When: As needed; Reason: Worsening of conditions. - Problem is new. - Symptoms have improved. Historical: - Allergies: no known allergies; - Home Meds: 1. 1 mg Oral tab 1 tablet daily - PMHx: none; - PSHx: none; - Social history: Smoking status: Patient states was never smoker of tobacco. No barriers to communication noted, The patient speaks fluent Luxembourgish. - Family history: Not pertinent. - : The pt / caregiver states he / she is not on anticoagulants. Home medication list is obtained from the patient. - Exposure Risk Screening:: None identified. SOCIAL WORKER MASTERS: 04/02 12:33 1, Full Term 0, Premature 0, 0, Living 0, LMP 12/27/2015 ms18 Vital Signs: 12:29 BP 113 / 59; Pulse 87; Resp 18; Temp 97.0(O); Pulse Ox 100% on R/A; Weight 84.82 kg / ct3 187 lbs (M); Height 5 ft. 5 in. (165.10 cm) (M); Pain 0/10; 15:41 BP 111 / 65; Pulse 84; Resp 18; Pulse Ox 99% on R/A; Pain 0/10; kc3 12:29 Body Mass Index 31.12 (84.82 kg, 165.10 cm) ct3 MDM: 12:52 Financial registration complete. lg 12:54 IV Saline Lock ordered. ar2 12:54 Metoclopramide 10 mg IV at 40 mg/hr once over 15 mins ordered. ar2 12:54 Fluid Challenge ordered. ar2 12:55 NS 0.9% 1000 ml IV at bolus once ordered. ar2 12:55 Misc Explosive Operator Grenade Order ordered. ar2 12:56 CBC with Diff Ordered. EDMS 12:56 MED Profile Ordered. EDMS 12:56 UA Ordered. EDMS 13:10 Misc Explosive Operator Grenade Order complete. dem1 13:20 [facility] [place] [facility] Payment Agreement was scanned into [employer] and attached to record. lg 13:55 UA Reviewed. ar2 14:47 Ondansetron 4 mg IVP once ordered. ar2 14:48 Heart Tones ordered. ar2 15:02 CBC with Diff Reviewed. ar2 15:03 Urine Culture Ordered. EDMS 15:41 MED Profile Reviewed. dk1 17:24 T-Sheet-- Draft Copy was scanned into [employer] and attached to record. klr Administered Medications: 13:48 Drug: Metoclopramide 10 mg [metoclopramide 5 mg/mL injection solution] Route: IV; Rate: kc3 40 mg/hr; Infused Over: 15 mins; Site: left hand; 14:15 Follow up: IV Status: Completed infusion srm 13:48 Drug: NS 0.9% 1000 ml [sodium chloride 0.9 % intravenous solution] Route: IV; Rate: kc3 bolus; Site: left hand; 16:10 Follow up: IV Status: Completed infusion srm 15:11 Drug: Ondansetron 4 mg [ondansetron HCl 2 mg/mL intravenous solution (2 mL)] Route: kc3 IVP; Site: left hand; Signatures: Dispatcher [employer] EDMS Gopi Kelly, Dieter Adamson lg, PA-C PAJillian dykes1 Boris Rutledge PA-C PAJillian ar2 Rosaura aMgana dem1 Latesha Franz RN RN ms18 Neisha Ty RN RN kc3 Mirna Gamez Staci RN srm The chart was reviewed and I authenticate all verbal orders and agree with the evaluation and treatment provided.Corrections: (The following items were deleted from the chart) 12:55 12:54 Misc Explosive Operator Grenade Order ordered. ar2 ar2 Attachments: 13:20 [facility] Payment Agreement lg 17:24 T-Sheet-- Draft Copy klr Chart Complete MTDD
== END 2016-04-02 16:39 | disposition home or self-care (01) ==
LOC: M ED 12:27
DX: O21.9 Vomiting of pregnancy, unspecified (principal); Z3A.12 12 weeks gestation of pregnancy
CPT/HCPCS: 36415; 80048; 81001; 85025; 87086; 96361; 96365; 96375; 99284; J2405; J2765

== ENCOUNTER 2016-06-20 15:16 | Outpatient (CLI) | payer OTHER ==
[~2016-06-20] VITALS: Ht 162.6 cm; Wt 85.0 kg
[2016-06-20 15:25] VITALS: BP 126/77
[2016-06-20 16:33] VITALS: BP 132/72
[2016-06-20 16:54] LABS: BASO % 0.2 % (0.0-1.0); EOS # 0.1 K/mm3 (0.0-0.50); EOS % 1.1 % (0.0-3.0); LARGE UNSTAINED CELL # 0.1 K/mm3 (0.0-0.4); LARGE UNSTAINED CELL % 1.3 % (0.0-4.0); LYMPH # 1.8 K/mm3 (1.5-4.5); MEAN CORPUSCULAR HEMOGLOBIN 28.4 pg (27.0-33.0); MEAN CORPUSCULAR HGB CONC 31.8 g/dl (32.0-36.5); MEAN CORPUSCULAR VOLUME 89.3 fl (80.0-96.0); MONO # 0.2 K/mm3 (0.0-0.8); MONO % 3.8 % (0.0-5.0); NEUTROPHILS # 4.2 K/mm3 (1.8-7.7); NEUTROPHILS % 66.6 % (36.0-66.0); PLATELET COUNT, AUTOMATED 249 k/mm3 (150-450); RED CELL DISTRIBUTION WIDTH 13.6 % (11.5-14.5); WHITE BLOOD COUNT 6.3 K/mm3 (4.0-10.0)
[2016-06-20 17:03] LABS: ALBUMIN 2.7 GM/DL (3.2-5.2); ALBUMIN/GLOBULIN RATIO 0.66 (1.00-1.93); ALKALINE PHOSPHATASE 78 U/L (45-117); ALT/SGPT 18 U/L (12-78); AMYLASE 96 U/L (25-115); ANION GAP 9 MEQ/L (8-16); AST/SGOT 12 U/L (15-37); BILIRUBIN,TOTAL 0.2 MG/DL (0.2-1.0); BLOOD UREA NITROGEN 5 MG/DL (7-18); CALCIUM LEVEL 8.5 MG/DL (8.5-10.1); CARBON DIOXIDE LEVEL 23 MEQ/L (21-32); CHLORIDE LEVEL 106 MEQ/L (98-107); GLOMERULAR FILTRATION RATE > 60.0 (>60); GLUCOSE, FASTING 81 MG/DL (70-105); POTASSIUM SERUM 3.7 MEQ/L (3.5-5.1); SODIUM LEVEL 138 MEQ/L (136-145); TOTAL PROTEIN 6.8 GM/DL (6.4-8.2)
--- NOTE | 2016-06-20 17:12 | REP ---
Abdominal right upper quadrant ultrasound: There are no comparisons. There is a negative Quesada's sign to transducer pressure. There is no cholelithiasis, gallbladder wall thickening or pericholecystic fluid. There is no intrahepatic or extrahepatic biliary duct dilatation. The common duct measures 3 mm in diameter. The hepatic parenchyma is homogeneous and unremarkable. A small portion of the pancreatic head is visualized and unremarkable. The pancreas is otherwise obscured by bowel. There is no right renal hydronephrosis, calculus, mass or cyst. The right kidney is normal size measuring 11.4 cm craniocaudad length. The the patient is and the heart rate is 131 beats per minute. Impression: Essentially negative abdominal right upper quadrant ultrasound. Signed by Fabiano Gaspar MD 06/20/2016 05:04 P
[2016-06-20 18:02] VITALS: BP 112/58
[2016-06-20 18:47] VITALS: BP 108/59
--- NOTE | 2016-06-20 19:20 | REPUSA ---
OBSTETRICAL ULTRASOUND INDICATION: OB screening. FINDINGS: A single live intrauterine gestation was identified with a heart rate of 149 bpm. Th e amniotic fluid index was normal measuring 10.61 cm. The placenta was posterior, without evidence of placenta previa. The fetus was in a cephalic lie. The cervix measures 4.1 cm in length and is close d. Estimated weight is 565 g. The cranium and ventricles are unremarkable. Posterior fossa is within normal limits. The spine demonstrates normal contour and appearance.. Facial anatomy was not well visualized. The orbit s, nasal anatomy, and lips are normal in appearance. The upper extremities are unremarkable, but the lower extremities were not well visualized. A four-chamber heart is appreciated. The stomach, b ladder, and diaphragm are intact. The kidneys are not fully appreciated. Cord insertion site wa s not seen. A three-vessel umbilical cord is appreciated. BIOMETRIC MEASUREMENTS BPD 5.0 cm HC 20.0 cm AC 18.8 cm FL 4.1 cm IMPRESSION: 1. Single live fetus based on today's measurements at 22 weeks 6 days, with an estimated due date of 10/18/2016. 2. No abnormality detected on the survey. Limited evaluation of the facial anatomy, kidne ys, lower extremities, and cord insertion site. Follow-up is recommended as clinically indicated.
== END 2016-06-20 20:50 | disposition home or self-care (01) ==
LOC: M LDO 15:16
PROVIDERS: ATTEND Specialist
DX: O26.892 Other specified pregnancy related conditions, second trimester (principal); R10.11 Right upper quadrant pain; Z3A.23 23 weeks gestation of pregnancy

== ENCOUNTER → 2016-07-15 | Outpatient (CLI) | payer OTHER ==
[2016-07-15 13:48] LABS: MEAN CORPUSCULAR HEMOGLOBIN 29.3 pg (27.0-33.0); MEAN CORPUSCULAR HGB CONC 32.8 g/dl (32.0-36.5); MEAN CORPUSCULAR VOLUME 89.3 fl (80.0-96.0); RED CELL DISTRIBUTION WIDTH 14.1 % (11.5-14.5)
== END ==
LOC: M LAB 11:50
PROVIDERS: ATTEND Obstetrics & Gynecology
DX: Z34.82 Encounter for supervision of other normal pregnancy, second trimester (principal)

== ENCOUNTER 2016-09-07 12:58 | Outpatient (CLI) | payer OTHER ==
[~2016-09-07] VITALS: Ht 162.6 cm; Wt 88.0 kg
[2016-09-07 13:19] VITALS: BP 118/64
[2016-09-07] MEDS ORDERED: BICITRA 30ML SOLN UDC PO ONE (13:30)
[2016-09-07] MEDS ORDERED: PEPC1TAB4 PO (13:52)
[2016-09-07 14:36] VITALS: BP 101/57
[2016-09-07 15:56] VITALS: BP 107/59
[2016-09-07 17:45] VITALS: BP 106/57
== END 2016-09-07 18:29 | disposition home or self-care (01) ==
LOC: M LDO 12:58
PROVIDERS: ATTEND Obstetrics & Gynecology
DX: O26.893 Other specified pregnancy related conditions, third trimester (principal); Z3A.34 34 weeks gestation of pregnancy; O21.9 Vomiting of pregnancy, unspecified; O99.613 Diseases of the digestive system complicating pregnancy, third trimester

== ENCOUNTER → 2016-09-13 | Outpatient (REF) | payer OTHER ==
[~2016-09-13] MED LIST: IBUP-1114 PO; OMEP40CA2 PO; OXYC1TAB23 PO; PEPC1TAB4 PO
== END ==
LOC: M LAB REF 16:51
PROVIDERS: ATTEND Obstetrics & Gynecology
DX: Z34.03 Encounter for supervision of normal first pregnancy, third trimester (principal)

== ENCOUNTER 2016-10-11 11:37 | Inpatient (IN) | payer OTHER ==
[~2016-10-11] VITALS: Ht 154.9 cm; Wt 94.0 kg
[~2016-10-11 11:37] MED LIST changes: -IBUP-1114 PO; -OMEP40CA2 PO; -OXYC1TAB23 PO
[2016-10-11] MEDS ORDERED: LR 1,000 ML IV SCH (13:07)
[2016-10-11] MEDS ORDERED: LACTATED RINGER'S 1000 ML IV STA (13:07)
[2016-10-11] MEDS ORDERED: ACETAMINOPHEN TAB 650MG DOSE (2X325MG) PO PRN (13:15)
[2016-10-11 15:02] LABS: BASO % 0.2 % (0.0-1.0); EOS # 0.1 K/mm3 (0.0-0.50); EOS % 1.3 % (0.0-3.0); LARGE UNSTAINED CELL # 0.1 K/mm3 (0.0-0.4); LARGE UNSTAINED CELL % 1.1 % (0.0-4.0); LYMPH # 1.7 K/mm3 (1.5-4.5); LYMPH % 28.2 % (24.0-44.0); MEAN CORPUSCULAR HEMOGLOBIN 28.4 pg (27.0-33.0); MEAN CORPUSCULAR HGB CONC 31.9 g/dl (32.0-36.5); MEAN CORPUSCULAR VOLUME 89.1 fl (80.0-96.0); MONO # 0.2 K/mm3 (0.0-0.8); MONO % 3.7 % (0.0-5.0); NEUTROPHILS # 3.9 K/mm3 (1.8-7.7); NEUTROPHILS % 65.6 % (36.0-66.0); PLATELET COUNT, AUTOMATED 204 k/mm3 (150-450); WHITE BLOOD COUNT 5.9 K/mm3 (4.0-10.0)
[2016-10-11 15:26] LABS: ALT/SGPT 17 U/L (12-78); AST/SGOT 15 U/L (15-37); BILIRUBIN,TOTAL 0.3 MG/DL (0.2-1.0); GLOMERULAR FILTRATION RATE > 60.0 (>60); URIC ACID 3.8 MG/DL (2.6-6.0)
[2016-10-11] MEDS ORDERED: OMEP40CA2 PO (16:20)
[2016-10-11] MEDS ORDERED: OXYC1TAB23 PO (16:20)
[2016-10-11 16:52] VITALS: BP 128/68
[2016-10-11] MEDS ORDERED: BICITRA 30ML SOLN UDC PO ONE (18:15)
[2016-10-11 18:20] VITALS: BP 140/85
[2016-10-11] MEDS: miSOPROStol 50 MCG 1/2 TAB (S0191) PO SCH ×2 (18:21→22:27)
[2016-10-11 19:03] VITALS: BP 110/61
[2016-10-11 20:33] VITALS: BP 118/57
[2016-10-11 22:26] VITALS: BP 106/59
--- NOTE | 2016-10-11 23:27 | HPE ---
DATE OF ADMISSION: 10/11/2016 DATE OF ADMISSION: Anabel is a 31-year-old female, 1, para 0 with an EDC of 10/15/2016, estimated gestational age (EGA) 39-3/7 weeks gestation who has a history of enlarging fibroid uterus during this , abdominal pain. She was originally scheduled for an induction today, however, she presented with complaints of nausea, vomiting and increasing abdominal pain. At this point, upon evaluation she was found to be a bit dehydrated. IV fluid hydration was started and the patient will be admitted. Labs will be reviewed and induction process will take place when there is available L and D staff. record reviewed. PAST MEDICAL HISTORY: 1. The patient does have a history of gastroesophageal reflux with this , has been on Prilosec with minimal improvement 2. History of fibroid uterus shown to be enlarging on ultrasound and increasing abdominal pain, cannot rule out denatured fibroid. OB LABS: Blood type is A+, rubella immune, hepatitis negative, HIV negative, GC chlamydia negative, 1-hour sugar testing was within normal limits. Her GBS is negative. PAST SURGICAL HISTORY: Denies. SOCIAL HISTORY: The patient denies any alcohol, drugs or cigarette smoking. REVIEW OF SYSTEMS: Unremarkable. FAMILY HISTORY: Unremarkable. MEDICATIONS: vitamin, omeprazole as needed ALLERGIES: No known drug allergies. PHYSICAL EXAMINATION ON ADMISSION: Normal-appearing female in mild discomfort. HEENT: Grossly within normal limits. Abdomen: Soft, nontender, nondistended. Extremities: No clubbing, cyanosis or edema. Vaginal examination: Closed, thickened, posterior. Fetus at -4 station in a vertex position. Tracing reviewed: Category one tracing with irregular contractions. ASSESSMENT: 1. Intrauterine at 39-3/7 weeks gestation. 2. Abdominal pain/contraction. 3. Nausea, vomiting. Cannot rule out dehydration. 4. History of enlarging fibroid uterus. PLAN: Admit the patient to labor and delivery, IV fluid hydration started. Labs sent. Given that the patient was scheduled for an induction today she will be admitted and as soon as labor and delivery has the availability in staff to take care of her, an induction with the initiated with Cytotec.
[2016-10-11 23:32] VITALS: BP 108/64
[2016-10-12] VITALS (10 sets, daily range): BP systolic 107–134; BP diastolic 65–75
[2016-10-12] MEDS ORDERED: PROMETHAZINE INJ 25 MG/ML VIAL (J2550) IV ONE (00:45)
[2016-10-12] MEDS ORDERED: BUTORPHANOL 2 MG/ML INJ (J0595) IV ONE (00:45)
[2016-10-12] MEDS: miSOPROStol 50 MCG 1/2 TAB (S0191) PO SCH (02:35)
[2016-10-12] MEDS: DOCUSATE SODIUM 100 MG CAP PO SCH ×2 (09:00→20:04)
[2016-10-12] MEDS ORDERED: BICITRA 30ML SOLN UDC PO SCH (09:00)
[2016-10-12] MEDS ORDERED: ADACEL/BOOSTRIX VACCINE (DIPHTH/PERTUSS/ACELL/TETANUS)0.5ML SYR (90715) IM ONE (09:00)
[2016-10-12] MEDS ORDERED: NALBUPHINE HCL 10 MG/ML AMP (J2300) IV PRN (09:15)
[2016-10-12] MEDS ORDERED: ONDANSETRON 4MG/2ML VIAL (J2405) IV PRN ×3 (09:15→11:15)
[2016-10-12] MEDS ORDERED: METOCLOPRAMIDE INJ 10MG/2ML VIAL (J2765) IV PRN (09:15)
[2016-10-12] MEDS ORDERED: NALOXONE INJ 0.4 MG/1 ML VIAL (J2310) IV PRN ×2 (09:15)
[2016-10-12] MEDS ORDERED: MEASLES,MUMPS,RUBELLA VACCINE INJ (MMR-II) (90707) SC SCH (10:00)
[2016-10-12] MEDS ORDERED: NORCO, ANEXSIA 5/325MG TABLET (HYDROcodone/ACETAMINOPHEN) PO PRN ×2 (10:00)
[2016-10-12] MEDS ORDERED: MOM 30ML SUSPENSION UDC PO PRN (10:00)
[2016-10-12] MEDS ORDERED: RHOGAM 300 MCG (1500 IU) INJ (J2790) IM SCH (10:00)
[2016-10-12 10:40] LABS: CORD GAS ABE V -0.5; CORD GAS HCO3 V 26.3 MEQ/L; CORD GAS O2 SAT V 63.1 %; CORD GAS PH V 7.321 UNITS; CORD GAS PO2 V 30.4 mmHg; CORD GAS SBC V 23.4 MEQ/L; CORD GAS TCO2 V 27.8 MEQ/L
[2016-10-12 10:42] LABS: CORD GAS ABE A -0.3; CORD GAS HCO3 A 27.2 MEQ/L; CORD GAS O2 SAT A 28.1 %; CORD GAS PCO2 A 57.7 mmHg; CORD GAS PH A 7.291 UNITS; CORD GAS PO2 A 16.9 mmHg; CORD GAS SBC A 22.8 MEQ/L
[2016-10-12] MEDS ORDERED: PHENYLephrine HCL 500 MCG/5 ML (100MCG/ML) SYRINGE (J2370) As Ordered ONE (10:47)
[2016-10-12] MEDS ORDERED: MORPHINE PRES-FREE INJ 10 MG/10 ML VIAL (J2274) As Ordered ONE (10:47)
[2016-10-12] MEDS ORDERED: ePHEDrine SULFATE 25 MG/5 ML(5MG/ML) SYRINGE As Ordered ONE (10:47)
[2016-10-12] MEDS ORDERED: KETOROLAC 60 MG/2 ML VIAL (J1885) As Ordered ONE (10:48)
[2016-10-12] MEDS ORDERED: ONDANSETRON 4MG/2ML VIAL (J2405) As Ordered ONE (10:48)
[2016-10-12] MEDS ORDERED: fentaNYL 100 MCG/2 ML INJECTION (J3010) IV PRN (11:15)
[2016-10-12] MEDS: PRENATAL VITAMINS CHEWABLE TABLET PO SCH (13:09)
[2016-10-12] MEDS: LR 1,000 ML IV SCH ×2 (14:18→18:00)
[2016-10-13 02:00] VITALS: BP 123/60
[2016-10-13] MEDS ORDERED: LR 1,000 ML IV SCH (03:15)
[2016-10-13 06:20] VITALS: BP 130/74
[2016-10-13 07:21] LABS: MEAN CORPUSCULAR HEMOGLOBIN 29.2 pg (27.0-33.0); MEAN CORPUSCULAR HGB CONC 33.2 g/dl (32.0-36.5); RED CELL DISTRIBUTION WIDTH 15.8 % (11.5-14.5); WHITE BLOOD COUNT 7.4 K/mm3 (4.0-10.0)
[2016-10-13] MEDS: DOCUSATE SODIUM 100 MG CAP PO SCH ×2 (08:18→21:07)
[2016-10-13] MEDS: PRENATAL VITAMINS CHEWABLE TABLET PO SCH (08:18)
[2016-10-13 10:37] VITALS: BP 135/69
[2016-10-13] MEDS: IBUPROFEN 800 MG TAB PO SCH ×2 (13:57→21:07)
[2016-10-13 14:25] VITALS: BP 127/65
[2016-10-13 18:32] VITALS: BP 118/63
[2016-10-13 22:05] VITALS: BP 121/59
[2016-10-14] MEDS: IBUPROFEN 800 MG TAB PO SCH (06:00)
[2016-10-14 06:05] VITALS: BP 123/70
[2016-10-14] MEDS: PRENATAL VITAMINS CHEWABLE TABLET PO SCH (09:00)
[2016-10-14] MEDS: DOCUSATE SODIUM 100 MG CAP PO SCH (09:00)
[2016-10-14] MEDS ORDERED: IBUP-1114 PO (09:45)
--- NOTE | 2016-10-16 13:50 | RO ---
DATE OF PROCEDURE: 10/12/2016 PREOPERATIVE DIAGNOSES: 1. Intrauterine at 39-3/7 weeks gestation. 2. Nonreassuring heart rate tracing, repetitive, late deceleration, remote from delivery. 3. Fibroid uterus. POSTOPERATIVE DIAGNOSES: 1. Intrauterine at 39-3/7 weeks gestation. 2. Nonreassuring heart rate tracing, repetitive, late deceleration, remote from delivery. 3. Fibroid uterus. PROCEDURE: Primary low transverse section. SURGEON: Michael Benavides DO TRACK SERVICE PERSON: Thaddeus Briscoe DO ANESTHESIA: Spinal. Anabel is a 31-year-old female, 1, para 0, who is admitted at 39-3/7 weeks gestation with fibroid uterus for induction after presenting with recurrent pain and nausea, vomiting. She had three doses of Cytotec for induction, had a nonreassuring heart rate tracing remote from delivery. Cervix was closed with a floating vertex. At this point, the decision was made to proceed with delivery primary section. COMPLICATION: None. ESTIMATED BLOOD LOSS: 500 mL. FINDING: Live male in occiput transverse position. 9/9. weight 7 pounds 4 ounces. Multiple uterine fibroid noted with a large posterior uterine myoma and one multiple fundal myoma. DESCRIPTION OF PROCEDURE: After obtaining informed consent, patient was taken to the operating room where spinal anesthetic was found to be adequate. She was then draped and prepped in usual sterile fashion in the supine position. At this point, a Pfannenstiel incision was made with the first knife. This was carried down to the fascia. Fascia was incised in midline fashion and carried through laterally. Superior aspect of the fascia was then grasped with two Gio clamp, tented off and dissected off the rectus muscle sharply. The inferior aspect was dissected off in similar fashion. Rectus muscles midline fashion. Perineum identified. Perineal cavity entered bluntly. Superior and inferior dissection of the peritoneum was then done with good visualization of the bladder. At this point, a Mobius skin retractor was placed. A low-transverse uterine incision was made. Infant was delivered in atraumatic fashion. Nose and mouth bulb suctioned. Cord doubly clamped and cut, and was handed over to awaiting warmer. Cord blood and cord gas was sent. Placenta removed manually. Uterus cleared of all clot and debris, and the uterine incision was then repaired in two separate layers of #0 Vicryl sutures. Pelvis copiously irrigated with normal saline and suctioned out. Attention turned to the peritoneum, which was closed in a running fashion using #2-0 Vicryl. All superficial bleeders coagulated. Fascia closed using #0 Vicryl on two separate segment. The skin was reapproximated in subcuticular fashion using #3-0 Vicryl on a Oscar. Steri-Strips placed. Patient tolerated procedure well. She was then transferred to recovery room in stable condition.
--- NOTE | 2016-10-16 13:50 | DSES ---
DATE OF ADMISSION: 10/11/2016 DATE OF DISCHARGE: 10/14/2016 FINAL DIAGNOSES: 1. Term for an induction. 2. Nonreassuring heart rate tracing, remote from delivery. PROCEDURES DONE DURING THIS ADMISSION: 1. Induction with Cytotec. 2. Primary low transverse section. CONDITION UPON DISCHARGE: Stable. DISCHARGE INSTRUCTIONS: The patient is instructed to call if there is any severe bleeding, pain, or temperature greater than 101. She is further instructed to use Motrin as needed for pain and Percocet as needed for severe pain. BRIEF HISTORY: Ms. Adams is a 31-year-old female, 1, para 0, was admitted at 39-3/7 weeks' gestation for an induction. She underwent Cytotec induction times three and had nonreassuring heart rate tracing. At this point, the decision was made to proceed with a section. She underwent a section. Was then transferred to maternity for postoperative care. Postoperatively, she did well, remained afebrile all throughout her hospital stay; and on postoperative day #2, she was discharged home in stable condition, to followup in the office in approximately 2 weeks for an incision check. She was discharged with the above-noted instruction.
== END 2016-10-14 12:00 | disposition home or self-care (01) | DRG 540 ==
LOC: M LDO 11:37 → M LDI 13:12 → M OBS 10-12 12:36
PROVIDERS: ADMIT Obstetrics & Gynecology; ATTEND Advanced Practice Midwife
PROC: 3E0DXGC Introduction of Other Therapeutic Substance into Mouth and Pharynx, External Approach (ICD-10-PCS; principal; 2016-10-11)
PROC: 10D00Z1 Extraction of Products of Conception, Low, Open Approach (ICD-10-PCS; 2016-10-12)
DX: O34.13 Maternal care for benign tumor of corpus uteri, third trimester (principal); D25.9 Leiomyoma of uterus, unspecified; Z37.0 Single live birth; Z3A.39 39 weeks gestation of pregnancy; K21.9 Gastro-esophageal reflux disease without esophagitis; Z79.899 Other long term (current) drug therapy; O76 Abnormality in fetal heart rate and rhythm complicating labor and delivery; O99.62 Diseases of the digestive system complicating childbirth